=== PATIENT | female | born 1975 | race Hispanic/Latino ===

== ENCOUNTER 2016-10-31 22:35 | Emergency (ER) | payer OTHER ==
[~2016-10-31] VITALS: Ht 157.5 cm; Wt 94.1 kg
[2016-10-31 22:58] VITALS: BP 137/89; PULSE 76; RESP 18; O2SAT 97
--- NOTE | 2016-10-31 23:21 | ED.REPORT ---
HPI- Female Date of Service Oct 31, 2016 ED Provider: Chavo Bergman DO Pt is a 41 y.o. female who presents to the ED c/o left flank pain radiating to her LLQ onset today. Pt reports associated decreased urination, increased urgency, and dysuria. She denies fever, nausea, vomiting, diarrhea, and chills. She also denies a hx of renal stones. Nursing Notes Stated Complaint: LOWER BACK PAIN Chief Complaint: Female Abdominal Pain Nursing Notes Reviewed: Yes Allergies: Coded Allergies: No Known Allergies (Verified , 10/31/16) General Time Seen by MD: 23:21 Chief Complaint Flank pain left Hx Obtained From: Patient Arrived By: Walk-in Sudden in Onset?: Yes Onset Occurred: 5 - 8 hours ago Symptom Duration: Since onset Location: : Flank left Quality: Painful Radiation: LLQ Severity: Current: Severe Past Medical History Past Medical History None reported Past Surgical History Liposuction Breast augmentation Social History Alcohol Use: "Social" Ambulatory Status Independent Review of Systems Constitutional: Denies: Chills, Fever GI: Reports: Abdominal pain, Denies: Diarrhea, Nausea, Vomiting Female: Reports: Dysuria, Flank pain, Urinary urgency, Urination decreased Complete sys rev & neg: except as marked. Physical Exam Initial Vital Signs Vital Signs (First) Date Time Temp Pulse Resp B/P Pulse Ox O2 Delivery O2 Flow Rate FiO2 10/31/16 22:58 76 18 137/89 97 Room Air 10/31/16 23:00 37 Initial VS: Reviewed Head / Eyes: Atraumatic, Normocephalic Extremities: Vascular intact, Neuro intact Skin: Warm, Dry, No cyanosis Neurologic: Alert, Oriented, Nonfocal Psychiatric: Mood/affect normal, Behavior normal, Normal thought content Female Genitourinary: Exam deferred General/Constitutional: Awake, Alert, Well appearing, Well developed, Well hydrated, Well nourished, Not toxic appearing Respiratory / Chest: Atraumatic, Breath sounds NL, Breath sounds = bilat, No respiratory distress, No rales, No rhonchi, No wheezing, No retractions, No stridor Cardiovascular: Heart rate NL, Regular rhythm, Heart sounds NL, Peripheral circulation NL Abdomen: Atraumatic, Soft, Non-tender, No guarding, No rebound, No distention Back: Atraumatic Left CVA tenderness Interpretation & Diagnostics Lab Results Interpretation Test 10/31/16 23:30 Urine Color Yellow (YELLOW) Urine Appearance Slightly cloudy Urine pH 6.0 (5.0-8.0) Urine Specific [place] 1.025 (1.003-1.035) Urine Protein 100mg/dL (NEG,TRACE) Urine Glucose (UA) Negativemg/dL (NEGATIVE) Urine Ketones Negativemg/dL (NEGATIVE) Urine Occult Blood Large (NEGATIVE) Urine Nitrite Negative (NEGATIVE) Urine Bilirubin Negative (NEGATIVE) Urine Urobilinogen Normalmg/dL (NORMAL) Urine Leukocyte Esterase Small (NEGATIVE) Urine RBC 11-50/hpf (0-2) Urine WBC >50/hpf (0-5) Urine Epithelial Cells Occasional/hpf (NONE-MOD) Urine Crystals None seen (NONE SEEN) Urine Bacteria Moderate/hpf (NONE-FEW) Urine Hyaline Casts None/lpf (NONE) Urine Granular Casts None seen (NONE SEEN) Urine Waxy Casts None seen (NONE SEEN) Urine Red Blood Cell Casts None seen (NONE SEEN) Urine White Blood Cell Casts None seen (NONE SEEN) Urine Mucus None seen (None Seen) Urine Trichomonas None seen (NONE SEEN) Urine Yeast None (NONE SEEN) Urinalysis Comment None Urine Culture Reflexed Indicated CT Abd / Pelvis Interpretation CONCLUSION: 1. No urinary stones or hydronephrosis. Trace left periureteral inflammatory stranding. This could be secondary to a recently passed stone through the left ureter or could represent ascending urinary tract infection. 2. Questionable wall thickening of the urinary bladder. Query cystitis. 3. Suspected mild wall thickening at the rectosigmoid junstion raises possibility of proctocolitis. Radiologist: Paxton Louis MD Re-Eval/Medical Decision Med Decision/Clinical Course UTI without evidence of hydronephrosis, obstructive uropathy or sepsis. She should do well with oral Bactrim. We will culture her urine. Toradol was given with prompt relief of symptoms. Short course of [place] provided for pain. Close outpatient follow-up recommended. Routine opiate warnings given. Re-Evaluation/Progress : Time of Eval: 00:18 Re-Evaluation/Progress Note: Pt rechecked. Pt's pain has improved. Discussed plan for discharge, pt understands and agrees with plan Discharge & Departure Impression: Primary Impression: UTI (urinary tract infection) Urinary tract infection type: acute cystitis Hematuria presence: without hematuria Qualified Code: N30.00 - Acute cystitis without hematuria Disposition: Home Discharge Condition All VS Reviewed: Yes Condition: Improved Additional Instructions: The CAT scan shows signs that you may have either passed a stone or UR developing a bladder and ureteral infection. Take Bactrim twice daily for 7 days. Take 1-2 [place] every 6 hours as needed for pain. Drink plenty of liquids. I would like you to call your doctor tomorrow to set up a follow-up appointment. He need to have the urine culture followed up with his well. There is also possible mild wall thickening in your colon which could be a form of colitis. If he developed diarrhea come back to emergency department. If he develop any leg stools come back to the emergency department. Do not drive or drink alcohol or consume acetaminophen for taking the [place]. Do not hesitate to return if any problems or any worsening symptoms. Referrals: Ton Sal MD (PCP) Phyllis Attestation Portions of this note were transcribed by Nadia Longo. I, Dr. eBrgman personally performed the history, physical exam and medical decision-making; I reviewed and confirmed the accuracy of the information in the transcribed note. Signed by : Phyllis Benton, 11/01/16 and 0056. copies to: Ton Sal MD, Todd P DO Oct 31, 2016 23:21 NADIA LONGO Oct 31, 2016 23:32
[2016-10-31] MEDS ORDERED: Ketorolac 30 mg/mL 2 mL Inj IM ONE (23:30)
[2016-10-31] MEDS ORDERED: _HYDROcodone/APAP 5-325 mg Tablet PO PRN (23:30)
[2016-10-31 23:44] LABS: APPEARANCE,URINE SLIGHTLY CLOUDY (CLEAR,HAZY); COLOR,URINE YELLOW (YELLOW); OCCULT BLOOD,URINE LARGE (NEGATIVE)
[2016-10-31 23:45] LABS: UROBILINOGEN,URINE NORMAL (NORMAL)
[2016-10-31] MEDS ORDERED: Trimethoprim-Sulfa 160 mg-800 mg Tablet PO ONE (23:55)
[2016-11-01 01:29] VITALS: BP 128/82; PULSE 72; RESP 20; O2SAT 98
--- NOTE | 2016-11-01 08:35 | DRSVH ---
PROCEDURE: CT KUB ([id number]) INDICATIONS: left flank pain, hematuria TECHNIQUE: Noncontrast 5 mm thick sections acquired from the diaphragms to the symphysis. 5 mm thick coronal an d sagittal reformats were then performed. For radiation dose reduction, the following was used: aut omated exposure control, adjustment of mA and/or kV according to patient size. COMPARISON: None. FINDINGS: Image quality: Excellent. Lung bases: Lung bases are clear. Heart size is normal. Urinary system: Both kidneys are normal in size. No kidney stones. No hydronephrosis or perinephri c fat stranding. Both ureters appear non-dilated throughout their expected courses. There is questio nable/mild left proximal periureteral inflammatory stranding Bladder wall thickness is normal; no ca lcified bladder stones. Other solid organs: Hepatic steatosis otherwise liver and spleen are normal in size. Gallbladder neg ative. Pancreas is normal in contours. No adrenal nodules. Peritoneum and bowel: Unenhanced bowel loops demonstrate normal wall thickness and caliber. No free fluid or air. Appendix not visualized and may be surgically absent given postoperative changes in t he right lower quadrant. Incidental colonic diverticula. Rectum is partially decompressed therefore u nremarkable. Nodes and vessels: No retroperitoneal or mesenteric adenopathy by size criteria. Aorta and inferior vena cava are normal in caliber. Abdominal wall: No ventral hernias. Pelvis: No free pelvic fluid. No inguinal hernias or adenopathy. Ill-defined 1 cm or less nodulari ty throughout the subcutaneous gluteal soft tissues probably related to injections although please co rrelate clinically. Bones: No suspicious bony lesions. No vertebral body compression fractures. IMPRESSION: No urolithiasis. No evidence of urinary obstruction. Mild left periureteral stranding possibly related to recently passed calculus, versus infectious in n ature. Please correlate clinically and with urinalysis findings. Elsewhere, no acute abnormality. Hepatic steatosis. Dictated by: Willard Ayoub M.D. on 11/01/2016 at 8:22 Approved by: Willard Ayoub M.D. on 11/01/2016 at 8:34
== END 2016-11-01 01:30 | disposition home or self-care (01) ==
LOC: SED 22:35
DX: N30.00 Acute cystitis without hematuria (principal); B96.20 Unspecified Escherichia coli [E. coli] as the cause of diseases classified elsewhere
CPT/HCPCS: 74176; 81000; 81025; 87077; 87086; 87088; 87186; 96372; 99285; J1885